=== PATIENT | male | born 1995 ===

== ENCOUNTER 2020-08-27 20:00 | Emergency (ER) | payer SELFPAY ==
[2020-08-27] MEDS ORDERED: DIPHtheria,PERTUSSIS(ACELL),TETANUS VACCINE/PF 0.5 ML VIAL IM ONE (20:09)
--- NOTE | 2020-08-27 20:10 | Event Note ---
ED Screening Note ED Screening Note: Patient accidentally cut by glass right middle finger Unsure of last tetanus immunization This initial assessment/diagnostic orders/clinical plan/treatment(s) is/are subject to change based on patients health status, clinical progression and re- assessment by fellow clinical providers in the ED. Further treatment and workup at subsequent clinical providers discretion. Patient/guardian urged not to elope from the ED as their condition may be serious if not clinically assessed and managed. Initial orders include: X-ray tdap
[2020-08-27 20:11] VITALS: BP 137/88
== END 2020-08-27 20:10 | disposition left against medical advice (07) ==
LOC: ED 20:00
DX: Z00.8 Encounter for other general examination (principal); Z53.21 Procedure and treatment not carried out due to patient leaving prior to being seen by health care provider